=== PATIENT | male | born 1990 | race Hispanic/Latino ===

== ENCOUNTER 2023-11-22 14:25 | Outpatient (RCR) | payer OTHER, SELFPAY | END 2023-11-22 15:01 | disposition home or self-care (01) | LOC: RPT 14:25 | PROVIDERS: ATTENDING PHYSICIAN Specialist; FAMILY PHYSICIAN Nurse Practitioner Adult Health | DX: Z47.89 Encounter for other orthopedic aftercare (principal); Z73.6 Limitation of activities due to disability | CPT/HCPCS: 97110 ==

== ENCOUNTER 2024-11-29 23:18 | Emergency (ER) | payer SELFPAY ==
[2024-11-29 23:22] VITALS: BP 148/88
[2024-11-30 03:31] VITALS: BP 128/80
[2024-11-30 05:30] VITALS: BMI 36.8
[2024-11-30 06:02] VITALS: BP 122/80
--- NOTE | 2024-11-30 06:06 | ED.GENMED ---
History of Present Illness
<Mervin Low DO, Resident - Last Filed: 11/30/24 06:41>
General
Chief Complaint: Musculo-Skeletal Complaint
Source: patient and records
Time Seen by Provider: 11/30/24 05:48
History of Present Illness
History of Present Illness:
34-year-old male past medical history of right sided torn Achilles status post surgery with [facility] orthopedics presents for left ankle pain started last night while he was playing soccer. Patient reports while playing soccer he felt a pop and
he reports it feels just like how it felt when he tore his right Achilles tendon last year. Patient reports he is unable to dorsiflex his left foot, he is able to wiggle his toes, has no numbness and tingling and no coldness in the foot. Patient
has only taken Tylenol for pain.
Past History
<Mervin Low DO, Resident - Last Filed: 11/30/24 06:41>
Past History
ED Past Medical History: None
ED Past Surgical History: Orthopedic (Right Achilles tendon repair)
Social History
Tobacco: Non-smoker
Alcohol: Occasional
Drug: None
Personal: Single
Review of Systems
<Mervin Low DO, Resident - Last Filed: 11/30/24 06:41>
Review of Systems
Constitutional: Reports no symptoms
EENT: Reports no symptoms
Respiratory: Reports no symptoms
Cardiac: Reports no symptoms
ABD/GI: Reports no symptoms
: Reports no symptoms
Musculoskeletal: Reports joint pain (Left ankle pain)
Phy Exam
<Mervin Low DO, Resident - Last Filed: 11/30/24 06:41>
General Physical Exam
General Presentation: well appearing and no apparent distress
General Skin: warm and dry
Cardiovascular Exam
Cardiovascular Exam: regular rate/rhythm, no edema and no murmur
Pulmonary Exam
Pulmonary Exam: lungs clear, no respiratory distress and no crackles
Gastrointestinal Exam
Gastrointestinal Exam: non tender, soft and non distended
Musculoskeletal Exam
Musculoskeletal Exam: other (Vallecillo's test left leg was negative, there was no movement with passive motion of the gastrocnemius. Patient is unable to plantarflex his left ankle. There is no palpable tendon present over the posterior left ankle.
Pain with Vallecillo's test, pain with palpation of the left calf)
Course
<Mervin Low DO, Resident - Last Filed: 11/30/24 06:41>
Orders/Labs/Results
Orders:
Orders
11/30/24 06:02
Crutches-Treatment ONCE
Ortho Boot Left- Treatment ONCE
Short or tall?: Tall
Ibuprofen [Motrin] 600 mg PO NOW STA
11/30/24 06:23
Ankle, left 3 view CR [CR Ankle - Left Min 3 Views ] Urgent
Comment:
Reason For Exam: acute pain posterior ankle
Vital Signs
Initial and Last Documented VS:
Initial Vital Signs
Temp Pulse Resp BP Pulse Ox
98.7 F 52 20 148/88 100
11/29/24 23:22 11/29/24 23:22 11/29/24 23:22 11/29/24 23:22 11/29/24 23:22
Last Documented Vital Signs
Temp Pulse Resp BP Pulse Ox
98.0 F 66 18 122/80 98
11/30/24 06:02 11/30/24 06:02 11/30/24 06:02 11/30/24 06:02 11/30/24 06:02
<Padmini Mckenzie DO - Last Filed: 11/30/24 07:22>
Orders/Labs/Results
Orders:
Orders
11/30/24 06:02
Crutches-Treatment ONCE
Ortho Boot Left- Treatment ONCE
Short or tall?: Tall
Ibuprofen [Motrin] 600 mg PO NOW STA
11/30/24 06:23
Ankle, left 3 view CR [CR Ankle - Left Min 3 Views ] Urgent
Comment:
Reason For Exam: acute pain posterior ankle
Vital Signs
Initial and Last Documented VS:
Initial Vital Signs
Temp Pulse Resp BP Pulse Ox
98.7 F 52 20 148/88 100
11/29/24 23:22 11/29/24 23:22 11/29/24 23:22 11/29/24 23:22 11/29/24 23:22
Last Documented Vital Signs
Temp Pulse Resp BP Pulse Ox
98.0 F 66 18 122/80 98
11/30/24 06:02 11/30/24 06:02 11/30/24 06:02 11/30/24 06:02 11/30/24 06:02
<Mervin Low DO, Resident - Last Filed: 11/30/24 06:41>
MDM/Problems Addressed
Differential Diagnosis Includes:
Complete Achilles tendon rupture, partial Achilles tendon rupture, musculoskeletal sprain
MDM/Problems Addressed:
34 male past history of right sided torn Achilles tendon presents for injury of the left ankle yesterday while playing soccer
Patient report felt a pop while playing, felt immediate pain and he believes this is similar to what happened to him last year
Patient follows [facility] orthopedics, Dr. Gutierrez who did his surgery approximately 6 months prior
Patient is reporting pain in the left ankle, patient is also reporting he is unable to plantarflex the left foot
Patient has a positive Vallecillo's test of the left leg, extreme pain to palpation of the left gastrocnemius. There is no passive motion of left ankle to plantarflexion. There is no Achilles tendon palpable over the posterior left ankle. Patient
has extreme pain to palpation of the left gastrocnemius, and the area where the left Achilles tendon would be. Patient has strong pulses, neurovascularly intact able to wiggle his toes. Skin is warm. Reports no paresthesias or numbness of the left
ankle. Patient has no other symptoms
Clinical diagnosis is consistent with complete left Achilles tendon rupture
Will check ankle radiograph to evaluate for any bone avulsions or fractures
Ankle radiograph pending
Patient will require follow-up with [facility] prescription for oral ibuprofen per patient preference
<Mervin Low DO, Resident - Last Filed: 11/30/24 06:41>
*Critical Care Note
Total Time (30-74mins, 75-104mins- exclusive of procedures): Not Applicable
<Padmini Mckenzie DO - Last Filed: 11/30/24 07:22>
*Radiology
Radiology exam reviewed: preliminary read by ED provider (Ankle x-ray shows no evidence of fracture. Mild soft tissue swelling posterior ankle.)
*Pulse Oximetry
Patient hypoxic: no
ED Attending Note
<Mervin Low DO, Resident - Last Filed: 11/30/24 06:41>
-
Portions of this chart may have been created with voice recognition software.� Occasional wrong word or��sound alike� substitutions may have occurred due to the inherent limitations of voice recognition software.
<Padmini Mckenzie DO - Last Filed: 11/30/24 07:22>
ED Attending Note
Patient seen and examined by attending physician: Yes
I performed a history and physical exam of patient and discussed management with resident, I reviewed resident's note and agree with documented findings and plan of care.: Yes
ED Attending Note:
This is a 34-year-old gentleman who has history of right Achilles tendon rupture April 2023, undergoing repair by Dr. Gutierrez May 2023. He has done quite well but yesterday afternoon was playing soccer and felt very similar pain, snap left posterior
ankle similar to previous Achilles tendon rupture on the right. He complains of persistent pain left posterior ankle with marked difficulty with dorsiflexion and plantarflexion related to pain. He denies foot pain nor knee pain nor thigh nor hip
pain. No weakness nor numbness.
He has not taken anything for discomfort.
34-year-old gentleman appears his stated age, awake and alert, pleasant, appears in no acute distress.
Left ankle with exquisite tenderness posterior superior ankle with soft, bogginess posterior ankle with palpable near complete absence of Achilles tendon. There is no tenderness to the medial nor lateral ankle, no tenderness to the foot, no
tenderness to the knee. Mild tenderness mid to distal posterior calf but no palpable fullness of the proximal calf. Distal pulses and sensation are intact.
Patient exam concerning for Achilles tendon rupture on the left. Concern for occult fracture, avulsion fracture thus will check x-ray.
Will medicate for pain with ibuprofen. Patient has been offered Toradol which she declines.
Will plan for Ortho boot and crutches along with follow-up with orthopedics.
Discharge Plan
Departure
Patient Disposition: Home (Routine Discharge)
Date of Disposition: 11/30/24
Time of Disposition: 07:22
Patient with high blood pressure during this ER visit?: No
Condition: Good
Discharge Problem:
Achilles tendon rupture
Instructions: Achilles Tendon Rupture (DC), Walking Boot, How to use crutches
Prescriptions:
New
ibuprofen 600 mg tablet
600 mg PO Q6H Qty: 30 0RF
Rx Instructions:
Use 600 mg by mouth every 6 hours as needed for pain
No Action
ibuprofen [Advil] 200 mg Tablet
400 - 800 mg PO PRN PRN (Reason: pain)
aspirin 325 mg Tablet
325 mg PO DAILY 30 Days Qty: 0 0RF
docusate sodium 100 mg Capsule
100 mg PO BID Qty: 0 0RF
oxycodone 5 mg Tablet
5 mg PO Q4HPRN PRN (Reason: mild pain) Qty: 0 0RF
acetaminophen 325 mg Tablet
650 mg PO Q4HPRN PRN (Reason: headache, temp >101F) Qty: 0 0RF
Referrals:
[facility] [Outside] - Call in 1-3 days for appt
Winston Gutierrez MD [Active] - Call in 1-3 days for appt
PRIVATE,PHYSICIAN [Family Provider] -
Activity Restrictions/Additional Instructions:
Please use ibuprofen 600 mg by mouth every 6 hours as needed for pain
Please keep your foot in the boot we provided, ambulate only with crutches.
Please follow-up with Dr. Gutierrez, [facility] orthopedics. Referral provided, call 1 to 3 days for an appointment next
Please follow-up with your primary care physician, call 1 to 3 days for an appointment. If you do not have a primary care physician referral for [place] residency clinic is provided
Please return to the if you are unable to bear weight on the foot. You develop any numbness and tingling, if your foot becomes extremely cold or with any concerns.
Interventions
Interventions:
*Risk Screen - Suicide Last Done: 11/29/24 23:22
*General Assessment Last Done: 11/30/24 06:28
*Neglect/Abuse Screening Last Done: 11/29/24 23:22
ED- Fall Risk Assessment Last Done: 11/30/24 05:31
*ED COVID-19 Vaccine History Last Done: 11/30/24 06:28
ED-Musculoskeletal Assessment Last Done: 11/30/24 05:29
Discharge Date and Time
Print Language: [id number]
[2024-11-30] MEDS: MOTRIN 600 MG PO (06:26)
[2024-11-30 08:00] VITALS: BP 120/80
== END 2024-11-30 08:09 | disposition home or self-care (01) ==
LOC: EMR 23:18
PROVIDERS: EMERGENCY PHYSICIAN Emergency Medicine
DX: S86.012A Strain of left Achilles tendon, initial encounter (principal); X50.1XXA Overexertion from prolonged static or awkward postures, initial encounter; Y93.66 Activity, soccer
CPT/HCPCS: 99283; 73610

== ENCOUNTER → 2024-12-15 10:16 | Outpatient (REF) | payer OTHER, SELFPAY | LOC: MRI 3T 10:16 | PROVIDERS: ATTENDING PHYSICIAN Specialist | DX: S86.012A Strain of left Achilles tendon, initial encounter (principal); S89.92XA Unspecified injury of left lower leg, initial encounter | CPT/HCPCS: 73721 ==

== ENCOUNTER 2024-12-22 06:17 | Day surgery (SDC) | payer OTHER, SELFPAY ==
[2024-12-22] VITALS (7 sets, daily range): BP systolic 106–130; BP diastolic 66–87; BMI 37.1
[2024-12-22] MEDS: TYLENOL 1000 MG PO (12:11)
[2024-12-22] MEDS: CELEBREX 200 MG PO (12:11)
[2024-12-22] MEDS: ROXICODONE 5 MG PO (16:18)
== END 2024-12-22 16:25 | disposition home or self-care (01) ==
LOC: SDS 06:17
PROVIDERS: Anesthesiology; ATTENDING PHYSICIAN Student in an Organized Health Care Education/Training Program
PROC: 0LQ Tendons, Repair (ICD-10-PCS; 2024-12-22)
PROC: 3E0T3BZ Introduction of Anesthetic Agent into Peripheral Nerves and Plexi, Percutaneous Approach (ICD-10-PCS; 2024-12-22)
DX: S86.012A Strain of left Achilles tendon, initial encounter (principal); X58.XXXA Exposure to other specified factors, initial encounter
CPT/HCPCS: 27650; 64450; C1776

== ENCOUNTER 2025-02-22 09:25 | Outpatient (RCR) | payer OTHER, SELFPAY | END 2025-02-22 23:59 | disposition home or self-care (01) | LOC: RPT 09:25 | PROVIDERS: ATTENDING PHYSICIAN Student in an Organized Health Care Education/Training Program | DX: S86.09 Other specified injury of Achilles tendon (principal); R26.89 Other abnormalities of gait and mobility; Z73.6 Limitation of activities due to disability | CPT/HCPCS: 97110; 97162 ==

== ENCOUNTER 2025-03-22 07:25 | Outpatient (RCR) | payer OTHER, SELFPAY | END 2025-03-22 23:59 | disposition home or self-care (01) | LOC: RPT 07:25 | PROVIDERS: ATTENDING PHYSICIAN Student in an Organized Health Care Education/Training Program | DX: S86.012D Strain of left Achilles tendon, subsequent encounter (principal); Z47.89 Encounter for other orthopedic aftercare (principal); R26.89 Other abnormalities of gait and mobility; Z73.6 Limitation of activities due to disability; M62.81 Muscle weakness (generalized); X58.XXXD Exposure to other specified factors, subsequent encounter | CPT/HCPCS: 97110; 97112; 97140; 97530 ==

== ENCOUNTER 2025-03-29 07:22 | Outpatient (RCR) | payer OTHER, SELFPAY | END 2025-04-02 23:59 | disposition home or self-care (01) | LOC: RPT 07:22 | PROVIDERS: ATTENDING PHYSICIAN Student in an Organized Health Care Education/Training Program | DX: S86.012D Strain of left Achilles tendon, subsequent encounter (principal); R26.89 Other abnormalities of gait and mobility; Z73.6 Limitation of activities due to disability; M62.81 Muscle weakness (generalized); X58.XXXD Exposure to other specified factors, subsequent encounter; Z47.89 Encounter for other orthopedic aftercare | CPT/HCPCS: 97110; 97140 ==

== ENCOUNTER 2025-05-10 08:00 | Outpatient (RCR) | payer OTHER, SELFPAY | END 2025-05-10 23:59 | disposition home or self-care (01) | LOC: RPT 08:00 | PROVIDERS: ATTENDING PHYSICIAN Student in an Organized Health Care Education/Training Program | DX: S86.012D Strain of left Achilles tendon, subsequent encounter (principal); R26.89 Other abnormalities of gait and mobility; Z73.6 Limitation of activities due to disability; M62.81 Muscle weakness (generalized); X58.XXXD Exposure to other specified factors, subsequent encounter; Z47.89 Encounter for other orthopedic aftercare | CPT/HCPCS: 97110; 97112 ==